=== PATIENT | male | born 1960 | race Caucasian/White ===

== ENCOUNTER 2021-10-26 08:43 | Emergency (ER) | payer OTHER ==
[~2021-10-26] VITALS: Wt 89.8 kg
[~2021-10-26 08:43] MED LIST: SEPTRA DS 800 M1 TAB PO
== END 2021-10-26 10:32 | disposition home or self-care (01) ==
LOC: ED 08:43
DX: S81.811A Laceration without foreign body, right lower leg, initial encounter (principal); W01.198A Fall on same level from slipping, tripping and stumbling with subsequent striking against other object, initial encounter; Y93.01 Activity, walking, marching and hiking; Y92.69 Other specified industrial and construction area as the place of occurrence of the external cause; Y99.9 Unspecified external cause status